=== PATIENT | male | born 1970 | race Caucasian/White ===

== ENCOUNTER 2024-04-16 06:33 | Day surgery (SDC) | payer OTHER ==
[2024-04-13 11:21] VITALS: BMI 27.6
[2024-04-16] MEDS ORDERED: DEXAMETHASONE SOD PHOSPHATE 4 MG/1 ML VIAL ONE (10:11)
[2024-04-16] MEDS ORDERED: ONDANSETRON 4 MG/2 ML VIAL ONE (10:11)
[2024-04-16] MEDS ORDERED: LIDOCAINE HCL/PF 2% SDV 5ML VIAL ONE ×2 (10:11→10:22)
[2024-04-16] MEDS ORDERED: DEXTROSE 5%-0.45% SALINE 1,000 ML IV SCH (10:15)
[2024-04-16] MEDS ORDERED: MIDAZOLAM HCL 2 MG/2 ML SINGLE DOSE VIAL ONE (10:21)
[2024-04-16] MEDS ORDERED: SODIUM BICARBONATE 8.4% 50 MEQ/50 ML DISP.SYRIN ONE (10:21)
[2024-04-16] MEDS ORDERED: LIDOCAINE HCL 2% JELLY 6 ML TP ONE (10:21)
[2024-04-16] MEDS ORDERED: PROPOFOL 40 ML ONE (10:23)
[2024-04-16] MEDS ORDERED: LIDOCAINE HCL 1%, 10 MG/ML (20ML VIAL) ONE (10:23)
[2024-04-16] MEDS ORDERED: HEPARIN NA (PORCINE) 5,000 UNITS/ML 1ML VIAL ONE (10:30)
[2024-04-16] MEDS ORDERED: KETOROLAC TROMETHAMINE 30 MG/1 ML VIAL ONE (10:37)
[2024-04-16] MEDS ORDERED: LIDOCAINE HCL 2% JELLY 11 ML TP ONE (10:38)
[2024-04-16] MEDS: ceFAZolin SODIUM 1 GM VIAL IVPB ONE (10:42)
[2024-04-16] MEDS ORDERED: ceFAZolin SODIUM 1 GM VIAL ONE (10:46)
[2024-04-16] MEDS: ACETAMINOPHEN 500 MG TABLET (FP) ONE (11:30)
[2024-04-16 11:41] VITALS: RESP 18
[2024-04-16] MEDS ORDERED: ACETAMINOPHEN 500 MG TABLET (FP) PO ONE (11:45)
[2024-04-16 12:04] VITALS: BP 115/70; PULSE 78; TEMP 98.2
== END 2024-04-16 12:05 | disposition home or self-care (01) ==
LOC: JASU-SURG 06:33
PROVIDERS: ATTEND Urology
PROC: 0T7B8ZZ Dilation of Bladder, Via Natural or Artificial Opening Endoscopic (ICD-10-PCS; principal; 2024-04-16 09:30)
DX: N30.10 Interstitial cystitis (chronic) without hematuria (principal); R35.0 Frequency of micturition
CPT/HCPCS: J1644